=== PATIENT | female | born 1960 | race Caucasian/White ===

== ENCOUNTER 2019-01-16 11:29 | Outpatient (CLI) | payer OTHER ==
--- NOTE | 2019-01-16 14:39 | XRAY Report ---
Reason: ACUTE PAIN R CALCANEUS X MONTHS Procedure Date: 01/16/2019 Accession Number: [id number] / [id number] Procedure: XR - Calcaneus RT CPT Code: FULL RESULT: EXAM: RIGHT CALCANEUS RADIOGRAPHY EXAM DATE: 01/16/2019 11:46 AM. CLINICAL HISTORY: Acute pain right calcaneus for months. COMPARISON: None. TECHNIQUE: 2 views. FINDINGS: Bones: Inferior calcaneal spurring with 2 broadly spaced enthesophytes, configuration suggestive of thickening of the plantar calcaneal origin. Minimal posterior calcaneal spurring. No fractures or bone lesions. Joints: Normal. No subluxations. Soft Tissues: Extensive vascular calcifications. IMPRESSION: Imaging appearance suggestive of plantar enthesopathy. Recommendation: Given extensive vascular calcifications, if the patient is potentially symptomatic, recommend screening JAIRO. RADIA
== END 2019-01-16 11:30 | disposition home or self-care (01) ==
LOC: DI 11:29
PROVIDERS: ATTEND Podiatrist
DX: M79.671 Pain in right foot (principal)

== ENCOUNTER 2019-03-24 15:08 | Outpatient (CLI) | payer OTHER | END 2019-03-24 15:09 | disposition critical access hospital (66) | LOC: EMS 15:08 | PROVIDERS: ATTEND Surgery | DX: M54.2 Cervicalgia (principal); R07.9 Chest pain, unspecified; M54.5 Low back pain; V49.40XA Driver injured in collision with unspecified motor vehicles in traffic accident, initial encounter; Y92.413 State road as the place of occurrence of the external cause | CPT/HCPCS: A0425; A0427 ==

== ENCOUNTER 2019-03-24 15:17 | Emergency (ER) | payer OTHER ==
[2019-03-24] MEDS ORDERED: TETANUS/DIPHTHERIA/PERTUSSIS 0.5 ML SYRINGE IM ONE (15:35)
[2019-03-24] MEDS ORDERED: SODIUM CHLORIDE 0.9% 1,000 ML IV ONE (15:35)
[2019-03-24] MEDS ORDERED: ONDANSETRON 4 MG/2 ML VIAL IVP STA (15:41)
[2019-03-24] MEDS ORDERED: HYDROmorphone 1 MG/ML CARPUJECT IVP STA (15:41)
[2019-03-24 15:49] LABS: BASOPHILS % (AUTO) 0.6 %; EOSINOPHILS # (AUTO) 0.3 10^3/uL (0.0-0.7); EOSINOPHILS % (AUTO) 3.9 %; HGB - HEMOGLOBIN 14.5 g/dL (12.0-16.0); LYMPHOCYTES # (AUTO) 2.2 10^3/uL (1.5-3.5); MEAN CORPUSCULAR HEMOGLOBIN 29.1 pg (27.0-31.0); MEAN CORPUSCULAR HGB CONC 32.8 g/dL (32.0-36.0); MEAN CORPUSCULAR VOLUME 88.6 fL (81.0-99.0); MEAN PLATELET VOLUME 9.9 fL (7.9-10.8); MONOCYTES # (AUTO) 0.5 10^3/uL (0.0-1.0); NEUTROPHILS # (AUTO) 3.7 10^3/uL (1.5-6.6); NEUTROPHILS % (AUTO) 55.2 %; PLT - PLATELET COUNT 269 10^3/uL (130-450); RED BLOOD COUNT 4.99 10^6/uL (4.20-5.40); RED CELL DISTRIBUTION WIDTH 13.5 % (12.0-15.0); WHITE BLOOD COUNT 6.7 x10^3/uL (4.8-10.8)
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
[2019-03-24 16:01] LABS: ALBUMIN 4.3 g/dL (3.2-5.5); ALBUMIN/GLOBULIN RATIO 1.2 (1.0-2.2); BILIRUBIN,TOTAL 0.5 mg/dL (0.2-1.0); CALCIUM 9.9 mg/dL (8.5-10.3)
[2019-03-24] MEDS ORDERED: IOVERSOL 320 100 ML VIAL IVP ONE ×2 (16:02→16:56)
[2019-03-24 16:06] LABS: INR 1.2 (0.8-1.2)
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
[2019-03-24 17:15] LABS: BILIRUBIN,URINE NEGATIVE (NEGATIVE); GLUCOSE, URINE (UA) 250 mg/dL (NEGATIVE); KETONES,URINE (UA) NEGATIVE (NEGATIVE); LEUKOCYTE ESTERASE, URINE NEGATIVE (NEGATIVE); NITRITE,URINE NEGATIVE (NEGATIVE); OCCULT BLOOD,URINE NEGATIVE (NEGATIVE); PROTEIN,URINE NEGATIVE (NEGATIVE); UROBILINOGEN,URINE 0.2 (NORMAL) E.U./dL (NORMAL)
[2019-03-24 17:17] LABS: CLARITY,URINE CLEAR (CLEAR)
[2019-03-24 18:11] VITALS: BP 130/74
== END 2019-03-24 18:11 | disposition home or self-care (01) ==
LOC: ED 15:17
DX: S63.501A Unspecified sprain of right wrist, initial encounter (principal); S80.812A Abrasion, left lower leg, initial encounter; S80.811A Abrasion, right lower leg, initial encounter; S80.12XA Contusion of left lower leg, initial encounter; S80.11XA Contusion of right lower leg, initial encounter; R07.9 Chest pain, unspecified; V43.52XA Car driver injured in collision with other type car in traffic accident, initial encounter; W22.11XA Striking against or struck by driver side automobile airbag, initial encounter; Z23 Encounter for immunization; M47.812 Spondylosis without myelopathy or radiculopathy, cervical region; I11.0 Hypertensive heart disease with heart failure; I50.9 Heart failure, unspecified; E11.9 Type 2 diabetes mellitus without complications; Z79.02 Long term (current) use of antithrombotics/antiplatelets
CPT/HCPCS: 36415; 70450; 71260; 72125; 73110; 74177; 80053; 81003; 83690; 85025; 85610; 90471; 90715; 93005; 96361; 96374; 99282; 99284; J1170; Q9967; 81001; 87086

== ENCOUNTER 2023-09-03 10:05 | Outpatient (CLI) | payer OTHER | END 2023-09-03 23:59 | disposition critical access hospital (66) | LOC: EMS 10:05 | DX: M54.50 Low back pain, unspecified (principal); S80.212A Abrasion, left knee, initial encounter; S50.312A Abrasion of left elbow, initial encounter; W01.0XXA Fall on same level from slipping, tripping and stumbling without subsequent striking against object, initial encounter; Y93.01 Activity, walking, marching and hiking; Y92.89 Other specified places as the place of occurrence of the external cause | CPT/HCPCS: A0425; A0429 ==

== ENCOUNTER 2023-09-03 10:27 | Emergency (ER) | payer OTHER ==
--- NOTE | 2023-09-03 10:54 | ED Physician Documentation ---
PD HPI Fall - Stated complaint Stated Complaint: GLF - Chief complaint Chief Complaint: Trauma Ch/Bk - History obtained from History obtained from: Patient - History of Present Illness Mechanism of injury: Lost balance Fall distance: Standing position Timing - onset: How many hours ago (1), Today Injury(ies) location: Back, Left Uppper Extremity (elbow), Left Lower Extremity (knee). 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 : None HEENT: None Psych: None Musculoskeletal: None Derm: None - Past Surgical History Past Surgical History: Yes Ortho: Spine surgery Cardiovascular: Coronary stent - Present Medications Home Medications: Ambulatory Orders Medication Instructions Recorded Confirmed Aspirin [Adult Aspirin Regimen] 81 mg PO ONCE 09/03/23 09/03/23 Clopidogrel Bisulfate [Plavix] 75 mg PO ONCE 09/03/23 09/03/23 Escitalopram [Lexapro] 10 mg PO DAILY 09/03/23 09/03/23 Levothyroxine Sodium [Synthroid] 200 mcg PO ONCE 09/03/23 09/03/23 Lisinopril [Zestril] 10 mg PO ONCE 09/03/23 09/03/23 Rosuvastatin Calcium 20 mg PO BID 09/03/23 09/03/23 Semaglutide [Ozempic] 0.25 mg SQ ONCE 09/03/23 09/03/23 Topiramate [Topamax] 25 mg PO DAILY 09/03/23 09/03/23 Trazodone HCl 150 mg PO HS 09/03/23 09/03/23 - Allergies Allergies/Adverse Reactions: Allergies Allergy/AdvReac Type Severity Reaction Status Date / Time amoxicillin Allergy Rash Verified 09/03/23 10:44 acetaminophen [From Vicodin] AdvReac Nausea Verified 09/03/23 10:44 hydrocodone [From Vicodin] AdvReac Nausea Verified 09/03/23 10:44 - Social History Does the pt smoke?: No Smoking Status: Never smoker Does the pt drink ETOH?: No Does the pt have substance abuse?: No - Immunizations Immunizations are current?: Yes PD ED PE NORMAL - Vitals Vital signs reviewed: Yes - General General: Alert and oriented X 3, Well developed/nourished, Other (no cervical collar nor board.) - HEENT HEENT: Atraumatic - Neck Neck: Supple, no meningeal sign, No bony TTP - Cardiac Cardiac: RRR, No murmur - Respiratory Respiratory: No respiratory distress, Clear bilaterally, Other (no chestwall tenderness. ) - Abdomen Abdomen: Soft, Non tender - Back Back: Other (tender left paraspinous area lumbar. ) - Derm Derm: Normal color, Warm and dry - Extremities Extremities: Other (left elbow and knee with abrasions, no lacerations. Good ROm of each without effusions. ) - Neuro Neuro: Alert and oriented X 3, No motor deficit, No sensory deficit Results - Vitals Vitals: Oxygen O2 Source Room air - Labs Labs: Laboratory Tests 09/03/23 09/03/23 10:34 10:34 WBC 4.9 RBC 4.28 Hgb 12.0 Hct 37.6 MCV 87.9 MCH 28.0 MCHC 31.9 L RDW 12.3 Plt Count 274 MPV 10.0 Neut # (Auto) 2.4 Lymph # (Auto) 1.9 [place] # (Auto) 0.5 Eos # (Auto) 0.2 Baso # (Auto) 0.0 Absolute Nucleated RBC 0.00 Nucleated RBC % 0.0 Sodium 134 L Potassium 5.0 H Chloride 101 Carbon Dioxide 25 Anion Gap 8.0 BUN 20 Creatinine 1.0 Estimated GFR (MDRD) 56 L Glucose 511 H* Calcium 9.3 Total Bilirubin 0.3 AST 28 ALT 27 Alkaline Phosphatase 58 Total Protein 6.5 Albumin 3.7 Globulin 2.8 Albumin/Globulin Ratio 1.3 Lipase 86 H - Rads (name of study) lumbar CT Relevant Findings:: Prelim report reviewed (no fractures), EMP independent interpretation of test left elbow Relevant Findings:: Prelim report reviewed, EMP independent interpretation of test (no fractures) left knee Relevant Findings:: Prelim report reviewed, EMP independent interpretation of test (small effusion. no fractures. ) PD Medical Decision Making - ED course Complexity details: reviewed results (normal imaging. No fractures nor acute abnormality.), considered differential (is on Plavix, not DOAC/anticoag. Did not strike head and no headache/neuro symptoms. No indication for CT. Has elbow, knee, and low back pains. Appropriate imaging done for these. ), d/w patient Departure - Departure Disposition: 01 Home, Self Care Clinical Impression: Fall from slip, trip, or stumble, Knee abrasion, Elbow abrasion, Low back pain, Elbow contusion Condition: Stable Record reviewed to determine appropriate education?: Yes Instructions: ED Abrasion Follow-Up: Leif Perry MD [Primary Care Provider] - Comments: The x-ray of your elbow and knee did not show any fractures. They can still be sore with movement and use in the short-term. Tylenol and/or ibuprofen or naproxen as needed for pains. Cleanse the abrasions once or twice daily and apply ointment to the area so they do not get dry and hard. Recheck if signs of infection. Regarding your low back, no signs of disruption of your previous fusion and no acute fractures. Again it can still be sore from the fall. Same medications to help with the pains. Add the muscle relaxants you have at home as needed. Heat and gentle stretching can be helpful as well. Follow-up with your primary care if not improved well over the next several days to week. Forms: PCP List Discharge Date/Time: 09/03/23 14:47
[2023-09-03 11:15] LABS: BASOPHILS % (AUTO) 0.8 %; EOSINOPHILS # (AUTO) 0.2 10^3/uL (0.0-0.7); EOSINOPHILS % (AUTO) 3.3 %; HCT - HEMATOCRIT 37.6 % (37.0-47.0); LYMPHOCYTES # (AUTO) 1.9 10^3/uL (1.5-3.5); LYMPHOCYTES % (AUTO) 38.4 %; MEAN CORPUSCULAR HGB CONC 31.9 g/dL (32.0-36.0); MEAN CORPUSCULAR VOLUME 87.9 fL (81.0-99.0); MONOCYTES # (AUTO) 0.5 10^3/uL (0.0-1.0); MONOCYTES % (AUTO) 9.4 %; NEUTROPHILS # (AUTO) 2.4 10^3/uL (1.5-6.6); NEUTROPHILS % (AUTO) 47.9 %; PLT - PLATELET COUNT 274 10^3/uL (130-450); RED BLOOD COUNT 4.28 10^6/uL (4.20-5.40); RED CELL DISTRIBUTION WIDTH 12.3 % (12.0-15.0); WHITE BLOOD COUNT 4.9 x10^3/uL (4.8-10.8)
[2023-09-03] MEDS: HYDROmorphone 0.5 MG/0.5 ML SYRINGE IVP STA (11:25)
[2023-09-03] MEDS: KETOROLAC 15 MG/ML VIAL IVP STA (11:25)
[2023-09-03 11:40] LABS: ALBUMIN 3.7 g/dL (3.2-5.5); ALBUMIN/GLOBULIN RATIO 1.3 (1.0-2.2); BILIRUBIN,TOTAL 0.3 mg/dL (0.2-1.0); CALCIUM 9.3 mg/dL (8.5-10.3); TOTAL PROTEIN 6.5 g/dL (6.4-8.9)
--- NOTE | 2023-09-03 11:49 | XRAY Report ---
PROCEDURE: Knee 3V LT INDICATIONS: fall onto knee/elbow TECHNIQUE: 3 views of the knee(s) were acquired. COMPARISON: None. FINDINGS: Bones: No fractures or dislocations. No suspicious bony lesions. Minimal to mild tricompartmental early arthritic change. Soft tissues: Trace knee joint effusion. No suspicious soft tissue calcifications or masses. Minima l chondrocalcinosis. IMPRESSION: No visualized acute fracture or dislocation. However, occult injury cannot be excluded. Recommend brandyn rt interval imaging follow-up in 7-10 days as clinically indicated for additional evaluation. Reviewed by: Lulu Wharton MD on 09/03/2023 11:48 AM PST Approved by: Lulu Wharton MD on 09/03/2023 11:48 AM PST Station ID: [id number]
--- NOTE | 2023-09-03 11:50 | XRAY Report ---
PROCEDURE: Elbow 3+V LT INDICATIONS: fall onto knee/elbow TECHNIQUE: 3 views of the elbow were acquired. COMPARISON: None. FINDINGS: Bones: No fractures or dislocations. No suspicious bony lesions. Soft tissues: No effusion. No suspicious soft tissue calcifications or masses. IMPRESSION: No visualized acute fracture or dislocation. However, occult injury cannot be excluded. Recommend brandyn rt interval imaging follow-up in 7-10 days as clinically indicated for additional evaluation. Reviewed by: Lulu Wharton MD on 09/03/2023 11:48 AM PST Approved by: Lulu Wharton MD on 09/03/2023 11:48 AM PST Station ID: [id number]
[2023-09-03] MEDS: INSULIN GLARGINE-YFGN 300 UNIT/3 ML PEN SUBQ STA (12:36)
[2023-09-03] MEDS: INSULIN LISPRO 300 UNIT/3 ML PEN SUBQ STA (12:38)
--- NOTE | 2023-09-03 13:40 | CT Report ---
PROCEDURE: Lumbar Spine WO INDICATIONS: fall with increased lumbar pain; s/p fusion in pas TECHNIQUE: Noncontrast 3 mm thick sections acquired from the T12 level to the sacrum. Sagittal and coronal refo rmats were constructed. For radiation dose reduction, the following was used: automated exposure co ntrol, adjustment of mA and/or kV according to patient size. COMPARISON: CT abdomen pelvis 03/24/2019 FINDINGS: Image quality: Excellent. Bones: There is posterior fusion from L4 through S1. Intervertebral spacers are present at L4-5 and L5-S1. Hardware is intact without evidence of hardware fracture or periprosthetic lucency to suggest loosening. Multilevel disc bulges are present. It is most severe at L2-3. Severe spinal stenosis is p resent at L2-3, L3-4. Moderate to severe bilateral foraminal narrowing at L2-3, L3-4, moderate to sev ere left, moderate right L4-5, moderate bilateral L5-S1. Multilevel facet and ligamentum flavum arthr opathy. Soft tissues: No retroperitoneal masses or hematomas. Visualized aorta is normal in caliber. Simpl e right renal cyst. IMPRESSION: No visualized fracture. Posterior lumbar fusion from L4 through S1. Multilevel degenerative changes including multilevel significant spinal stenosis secondary to disc bu lge with congenital beading effect of facet/ligamentum flavum arthropathy. Reviewed by: Lulu Wahrton MD on 09/03/2023 1:38 PM PST Approved by: Lulu Wharton MD on 09/03/2023 1:38 PM PST Station ID: [id number]
[2023-09-03 14:46] VITALS: BP 136/40; O2SAT 96
== END 2023-09-03 14:47 | disposition home or self-care (01) ==
LOC: EDUNIT# → SUPCPDRO 10:27 → ED 10:27
DX: S80.212A Abrasion, left knee, initial encounter (principal); S50.312A Abrasion of left elbow, initial encounter; W01.0XXA Fall on same level from slipping, tripping and stumbling without subsequent striking against object, initial encounter; M54.50 Low back pain, unspecified; I10 Essential (primary) hypertension; E11.9 Type 2 diabetes mellitus without complications; Z79.85 Long-term (current) use of injectable non-insulin antidiabetic drugs
CPT/HCPCS: 36415; 72131; 73080; 73562; 80053; 83690; 85025; 96374; 99283; 99284; A9270; J1170; J1815